=== PATIENT | male | born 1950 | race Caucasian/White ===

== ENCOUNTER 2020-10-14 09:36 | Outpatient (CLI) | payer MEDICARE, SELFPAY ==
--- NOTE | ~2020-10-14 | MR_ITS ---
EXAMINATION: MR knee LT wo con DATE: 10/14/2020 10:40 INDICATION: Left knee pain TECHNIQUE: Magnetic resonance imaging (MRI) of the left knee was performed without intravenous contra st. Sequences included coronal PD-weighted FSE, coronal PD-weighted FS FSE, sagittal T2-weighted FSE , sagittal PD-weighted FS FSE and axial PD weighted fat saturated FSE. COMPARISON: Radiographs dated 10/08/2020 FINDINGS: Medial compartment: Medial meniscal tear with radial tear at the posterior horn, complex tear plane with longitudinal, ve rtical and radial components at the medial meniscal body and finally a longitudinal horizontal tear p toy in the intervening posterior body. Mild partial thickness cartilage loss along the medial side o f the medial tibial plateau with smooth chondral surface. There is a small region of subarticular mirella ma at the medial rim at the medial tibial plateau suggesting more severe overlying fissuring. Additio nal partial thickness cartilage loss with chondral surface regularity but without degenerative subcho ndral changes along the anterior to central weightbearing medial femoral condyle. Lateral compartment: Lateral meniscus is normal. Articular cartilage is normal. Patellofemoral compartment: Extensive full and near full-thickness cartilage loss with cortical remodeling and scattered tiny foc i of subarticular edema along the lateral trochlea and lateral patellar facet. A severe partial thick ness cartilage loss with surface irregularity and fissuring at the medial side of the patellofemoral compartment. Ligaments and tendons: Anterior and posterior cruciate ligaments are normal. The medial collateral ligament and fibular junior ateral ligament complex are normal. The extensor mechanism is normal. The visualized medial and later al hamstring tendons as well as the iliotibial band are normal. Fluid: Large left knee joint effusion with mild scattered synovitis most prominent along the posterior andrei n of Hoffa's fat pad. No loose osteochondral bodies identified. Moderate-sized Ernst's cyst measuring 4.3 x 1.4 x 1.6 cm. Osseous/other: There is linear low signal intensity underlying the articular cortex at the medial side of the centra l weightbearing medial femoral condyle without surrounding edema suggesting this represents a scar fr om old stress or impaction fracture. Tiny low signal intensity bone island at the lateral femoral con dyle. No acute fracture or pathologic marrow replacing process. IMPRESSION: 1. Complex medial meniscal tear. 2. Mild medial and prominent and severe patellofemoral compartment osteoarthritis. 3. Large left knee joint effusion and moderate-sized Ernst's cyst. Reviewed, dictated and finalized at location [facility]. [employer] IMPRESSION: 1. Complex medial meniscal tear. 2. Mild medial and prominent and severe patellofemoral compartment osteoarthrit is. 3. Large left knee joint effusion and moderate-sized Ernst's cyst.
== END 2020-10-14 09:37 | disposition home or self-care (01) ==
PROVIDERS: Visit Provider Orthopaedic Surgery
DX: M17.12 Unilateral primary osteoarthritis, left knee (principal); M25.462 Effusion, left knee; M71.22 Synovial cyst of popliteal space [Baker], left knee; S83.232A Complex tear of medial meniscus, current injury, left knee, initial encounter; X58.XXXA Exposure to other specified factors, initial encounter
CPT/HCPCS: 73721

== ENCOUNTER 2020-10-25 01:23 | Outpatient (CLI) | payer MEDICARE, SELFPAY ==
[2020-10-25 18:46] LABS: SARS-CoV-2 RNA PCR Negative
== END 2020-10-25 01:24 | disposition home or self-care (01) ==
LOC: ANHCOVIDDT 01:23
PROVIDERS: Visit Provider Orthopaedic Surgery
DX: Z01.812 Encounter for preprocedural laboratory examination (principal); Z20.822 Contact with and (suspected) exposure to COVID-19
CPT/HCPCS: C9803; U0003; U0005

== ENCOUNTER 2020-10-28 01:56 | Day surgery (SDC) | payer MEDICARE, SELFPAY ==
[2020-10-20 13:21] VITALS: BMI 22.9
--- NOTE | 2020-10-27 14:47 | WPDANESEPPF ---
Anes - Initial Pre Proc Eval Procedure: Operation Date: 10/28/20 14:00 Proposed Procedures p Left Knee Arthroscopic Partial Medial Meniscectomy, Proceed As Indicated - Sebastian Forrester MD Date/Time: 10/27/20 14:47 Surgeon: Sebastian Forrester MD Pre Op Diagnosis: Complex Medial Meniscus Tear, Left Patient Data Age: 70 Gender: M Height: 1.78 m Weight: 72.65 kg Allergies Allergy/AdvReac Type Severity Reaction Status Date / Time No Known Allergies Allergy Verified 10/28/20 12:27 Home Medications Medication Instructions Recorded Confirmed Type amlodipine 5 mg tablet 5 mg PO QPM 09/16/20 10/20/20 History hydrochlorothiazide 12.5 mg tablet 12.5 mg PO DAILY 09/16/20 10/20/20 History losartan 100 mg tablet 100 mg PO DAILY 09/16/20 10/20/20 History Patient hx anesthesia problems: none Family hx anesthesia problems: none PMFSH Past Medical History Medical History (Updated 10/27/20 @ 14:48 by Giorgio Jimenez MD) Complex tear of medial meniscus of left knee History of fibula fracture History of tibial fracture HTN (hypertension) Osteoarthritis Family History Family History Mother Acute arthritis Social History Social History Smoking packs per day: 0.5 Smoking cigarettes per day: 10.0 Years smoked: 2 Smoking pack-years: 1.00 Smoking status: Former smoker Tobacco type: cigarettes Smoking end date: 09/26/79 Alcohol intake: current Drinks per week: 21 Living arrangements: with family Spiritual care concerns: No Anes - Eval Final PreProcedure Day of Procedure 10/27/20 14:47 Patient weight: overweight Heart: regular rate and rhythm Lungs: clear to auscultation and normal air movement Airway: Mallampati scale class II Neurological: alert and oriented Last oral intake: >/= 8 hours ASA classification: II Emergent: no Anesthetic plan: proceed Anesthesia type and monitoring: general LMA Informed Consent: The patient's anesthetic plan and its attendant risks and benefits were discussed with the patient/family/POA. Questions were solicited and answers provided to the satisfaction of the patient/family/POA.
--- NOTE | 2020-10-28 08:58 | WPDHPUPDATE1 ---
History and Physical Update Update Date/Time: 10/28/20 08:58 History and Physical has been reviewed, including an updated exam of the patient. There are NO changes in the patient's condition. Risks, benefits, and alternatives have been discussed and questions answered. Patient agrees to proceed with procedure.
[2020-10-28 12:18] VITALS: BP 179/78; PULSE 76; RESP 20; TEMP 36.7; O2SAT 100
[2020-10-28] MEDS: ACETAMINOPHEN 500 MG TABLET 1000 MG PO (12:32)
[2020-10-28] MEDS: LACTATED RINGERS 1,000 ML 30 ML IV CONT (12:40)
[2020-10-28] MEDS: KETOROLAC 15 MG/ML VIAL (*BKC) IV PUSH (12:41)
[2020-10-28] MEDS: ceFAZolin 2 GM/D5W 50 ML 2 GM/50 ML BAG IVPB (13:25)
[2020-10-28] MEDS: BUPIVACAINE HCL 0.5% PF 30 ML VIAL INFILTRATE (13:44)
[2020-10-28 14:30] VITALS: BP 149/78; PULSE 72; RESP 12; TEMP 36.3; O2SAT 100
--- NOTE | 2020-10-28 14:42 | SUR.PHASEI ---
1442-SANTOSH HERNANDEZ FOR DR. MARTINEZ AT [facility] TO ANSWER PT'S QUESTIONS RE: PROCEDURE.
[2020-10-28 14:45] VITALS: BP 159/85; PULSE 62; RESP 14; O2SAT 100
--- NOTE | 2020-10-28 14:47 | P.OP_ITS ---
Procedure Note - Detailed Date of procedure: 10/28/20 Pre-op diagnosis: Complex Medial Meniscus Tear, Left Medial meniscus tear. Post-op diagnosis: other (1. Symptomatic Medial meniscus tear 2. Osteoarthritis) Procedure performed: Arthroscopic partial meniscectomy, with limited synovectomy and osteophyte excision. Description of procedure: The posterior horn of the medial meniscus had a complex tear. Large unstable flap was debrided with the arthroscopic shaver, punches and radiofrequency probe. The lateral compartment continuous improvement lead. Quite healthy of the weight-bearing portion. The trochlea and anterior lateral condyle were eroded to bone. Much of the patella was also denuded of cartilage. There was a thick plica band superior laterally which appeared to be potentially symptomatic. This was excised and there was also a 1 cm I reviewed the images personally.5 mm loose osteophyte at the lateral margin of the patella. This was excised as well. Anesthesia: [facility] Surgeon: Sebastian Forrester MD Professional Application Designer: Irene Bellamy PA-C Estimated blood loss (mL): 5 Complications: None Condition: stable Findings: Brief History: The patient complained of knee pain, swelling and mechanical symptoms despite conservative treatment. MRI confirmed the presence of a meniscus tear. Procedure Details: The patient was identified and the surgical site confirmed and signed in the preoperative holding area. Antibiotics were started per protocol. She was brought to the operative room and transferred to the OR table. A general anesthetic was administered. Supine position with the operative lower extremity position in the leg skaggs after placement of a well padded tourniquet. The leg support was lowered and the contralateral limb was supported with a soft bolster. The knee was prepped and draped in the usual sterile fashion. A time-out was performed. The portal sites were marked and infiltrated with 0.5% Marcaine 20 mL. The limb was exsanguinated and the tourniquet inflated to 300 mL Hg. Standard inferolateral and inferomedial portals were established. Inflow was obtained with the saline pump. The camera was introduced. Diagnostic inspection of the joint was accomplished. The meniscus was debrided with the arthroscopic shaver and punches until stable. The superior lateral plica fold was quite thickened and in an atypical location. It seemed to be potentially impinging on the large superolateral osteophyte. Was excised carefully without the need to disrupt much of the remaining synovial lining. The lateral aspect of the patella had a loose osteophyte. This was easily peeled off of the capsule and excised. The arthroscopic instruments were removed. The tourniquet released and wounds closed with subcutaneous 3-0 Monocryl absorbable suture. Steri strips and a sterile dressing were applied. A light elastic wrap was placed. The patient was extubated and brought to the recovery room in stable condition.
[2020-10-28 15:00] VITALS: BP 161/80; PULSE 63; RESP 17; O2SAT 100
[2020-10-28 15:15] VITALS: BP 107/91; PULSE 68; RESP 16
[2020-10-28 15:48] VITALS: BP 173/69; PULSE 56; RESP 14
== END 2020-10-28 16:15 | disposition home or self-care (01) ==
PROVIDERS: PCP Family Medicine; Visit Provider Orthopaedic Surgery
PROC: (CPT 29870; principal; 2020-10-28 14:00)
DX: S83.232A Complex tear of medial meniscus, current injury, left knee, initial encounter (principal); X50.0XXA Overexertion from strenuous movement or load, initial encounter; M25.762 Osteophyte, left knee; M17.12 Unilateral primary osteoarthritis, left knee; Z87.81 Personal history of (healed) traumatic fracture; I10 Essential (primary) hypertension; Z87.891 Personal history of nicotine dependence
CPT/HCPCS: 29881; 29879; A9270; C9803; J0690; J1100; J1885; J2001; J2250; J2405; J2704; J3010; J7120; U0003; U0005

== ENCOUNTER → 2022-10-14 07:45 | Outpatient (CLI) | payer MEDICARE, SELFPAY ==
--- NOTE | ~2022-10-14 | MR_ITS ---
MRI of the cervical spine Clinical History: Shoulder pain Technique: Axial T2-weighted and gradient images, and sagittal T1-weighted, T2-weighted, and STIR omar ges were acquired. Findings: No fracture identified. Minimal grade 1 anterolisthesis of C2 over C3 noted. No suspicious bone marrow signal abnormality identified. At C2-C3, there is no disc bulge or herniation. There is mild left facet arthropathy. No spinal canal stenosis, cord compression, or definite neural foraminal narrowing. At C3-C4, there is degenerative disc narrowing and mild disc bulge. There is probable minimal flatten ing of the ventral cord. There is may be minimal left neural foraminal narrowing. Right neural forame n preserved. At C4-C5, there is advanced degenerative disc narrowing with minimal disc osteophyte complex. No defi nite canal stenosis or cord compression. There is probable mild bilateral neural foraminal narrowing, left worse than right. At C5-C6, disc osteophyte complex is present. No padmaja cord compression. There is bilateral neural fo raminal narrowing. At C6-C7, there is minimal disc bulge. No spinal canal stenosis or cord compression. There is probabl e mild right neural foraminal narrowing. Left neural foramen preserved. No abnormal signal seen in the spinal cord. Paravertebral soft tissues are unremarkable. Impression: Degenerative spondylitic changes, as detailed above, probably mild in overall degree. There is multil evel neural foraminal narrowing. Minimal grade 1 anterolisthesis of C2 over C3. Reviewed, dictated and finalized at [facility]. [employer] Impression: Degenerative spondylitic changes, as detailed above, probably mild in overall d egree. There is multilevel neural foraminal narrowing. Minimal grade 1 anterolisthesis of C2 over C3.
== END ==
PROVIDERS: Visit Provider Physician Assistant Surgical
DX: M25.511 Pain in right shoulder (principal)
CPT/HCPCS: 72141